=== PATIENT | female | born 1985 | race Caucasian/White ===

== ENCOUNTER 2019-06-28 10:38 | Inpatient (IN) | payer MEDICAID, OTHER ==
[2019-06-28] MEDS ORDERED: BICITRA ORAL LIQD 30ML PO ONE (12:20)
[2019-06-28] MEDS ORDERED: METOCLOPRAMIDE 10 MG/2 ML INJ IV ONE (12:20)
[2019-06-28] MEDS ORDERED: FAMOTIDINE 20 MG/2 ML INJ IV ONE (12:20)
[2019-06-28] MEDS ORDERED: ceFAZolin/Water 2 GM/20 ML 2 GM/20 ML SYRINGE IV NR ×2 (13:00→14:00)
[2019-06-28] MEDS ORDERED: LACTATED RINGERS 1,000 ML IV SCH ×2 (13:00→14:00)
[2019-06-28] MEDS ORDERED: OXYTOCIN 20 UNIT/1000ML DRIP 20 UNITS/1,000 ML BAG IV SCH ×3 (13:00→16:00)
--- NOTE | 2019-06-28 13:56 | History and Physical Report ---
History of Present Illness Date of examination: 06/28/19 Date of admission: 06/28/19 10:38 Chief complaint: Here for 3rd delivery History of present illness: . X2 previous deliveries. LAINA 07/03/2019. Past History Past Medical History: no pertinent history Past Surgical History: section - Obstetrical History Expected Date of Delivery: 07/03/19 Actual Gestation: 39 Week(s) 2 Day(s) : 3 Para: 2 Medications and Allergies Allergies Allergy/AdvReac Type Severity Reaction Status Date / Time No Known Allergies Allergy Unverified 02/18/16 06:22 Home Medications Medication Instructions Recorded Confirmed Last Taken Type Pnv Cmb#21/Iron/Folic Acid 1 tab PO QDAY 02/18/16 02/19/16 02/18/16 History Ferrous Sulfate [Feosol 325 MG tab] 325 mg PO BID #30 tablet 02/20/16 Unknown Rx Ibuprofen [Motrin 800 MG tab] 800 mg PO Q8HR PRN #30 tablet 02/20/16 Unknown Rx oxyCODONE /ACETAMINOPHEN [Percocet 1 tab PO Q6HR PRN #30 tablet 02/20/16 Unknown Rx 5/325] Active Meds: Active Medications Oxytocin/Sodium Chloride (Pitocin/Ns 20 Unit/1000ml Drip) 20 units in 1,000 mls @ 0 mls/hr IV TITR DELIA Lactated Ringer's (Lactated Ringers) 1,000 mls @ 2,250 mls/hr IV PREOP DELIA Stop: 06/29/19 13:27 Cefazolin Sodium (Ancef/Sterile Water 2 Gm/20 Ml) 2 gm in 20 mls @ 80 mls/hr IV PREOP NR Stop: 06/28/19 23:59 Review of Systems All systems: negative - Vital Signs Vital signs: Vital Signs Pulse BP 85 110/58 06/28/19 11:54 06/28/19 11:54 Temp Pulse Resp BP Pulse Ox 85 110/58 06/28/19 11:54 06/28/19 11:54 - Physical Exam Lungs: Positive: Normal air movement Abdomen: Positive: soft, distention. Negative: tenderness - Obstetrical FHR: auscultation normal Uterine Contraction Monitor Mode: Palpation Results All other labs normal. Assessment and Plan - Patient Problems (1) with 39 completed weeks gestation Current Visit: Yes Status: Acute (2) Previous delivery affecting , antepartum Current Visit: Yes Status: Acute Plan to address problem: Patient was counseled re choices for delivery. She chose an elective repeat after hearing all the risks of this procedure and after all her questions were answered. She gave her consent.
[2019-06-28] MEDS ORDERED: FAMOTIDINE 20 MG/2 ML INJ IV SCH (13:57)
[2019-06-28] MEDS ORDERED: METOCLOPRAMIDE 10 MG/2 ML INJ IV SCH (13:57)
--- NOTE | 2019-06-28 13:59 | Anesthesia Day of Surgery ---
Anesthesia Day of Surgery - Day of Surgery Patient Examined: Yes Patient H&P Reviewed: Yes Patient is NPO: Yes
--- NOTE | 2019-06-28 13:59 | Anesthesia Consultation ---
Anesthesia Consult and Med Hx Date of service: 06/28/19 - Airway Anesthetic Teeth Evaluation: Good ROM Head & Neck: Adequate Mental/Hyoid Distance: Adequate Mallampati Class: Class II Intubation Access Assessment: Probably Good - Pulmonary Exam CTA: Yes - Cardiac Exam Cardiac Exam: RRR - Pre-Operative Health Status ASA Pre-Surgery Classification: ASA2 Proposed Anesthetic Plan: Spinal - Pulmonary Hx Asthma: Yes COPD: No Hx Pneumonia: No - Cardiovascular System Hx Hypertension: No - Central Nervous System Hx Seizures: No Hx Psychiatric Problems: No - Endocrine Hx Renal Disease: No Hx End Stage Renal Disease: No Hx Hypothyroidism: No Hx Hyperthyroidism: No - Hematic Hx Anemia: No Hx Sickle Cell Disease: No - Other Systems Hx Alcohol Use: No
[2019-06-28 14:34] LABS: Basophils % (Auto) 0.5 % (0.0-1.8); Eosinophils % (Auto) 0.3 % (0.0-4.3); Hematocrit 40.1 % (30.3-42.9); Hemoglobin 13.5 gm/dl (10.1-14.3); Lymphocytes # (Auto) 1.2 K/mm3 (1.2-5.4); Lymphocytes % (Auto) 22.6 % (13.4-35.0); Mean Corpuscular HGB Conc 34 % (30-34); Mean Corpuscular Volume 93 fl (79-97); Monocytes # (Auto) 0.4 K/mm3 (0.0-0.8); Monocytes % (Auto) 7.5 % (0.0-7.3); Red Blood Count 4.33 M/mm3 (3.65-5.03); Red Cell Distribution Width 13.9 % (13.2-15.2)
[2019-06-28 14:42] LABS: Platelet Count 111 K/mm3 (140-440)
[2019-06-28] MEDS ORDERED: BICITRA ORAL LIQD 30ML PO SCH (15:00)
[2019-06-28] MEDS ORDERED: SODIUM CHLORIDE 0.9% IRR 1,500 ML BOTTLE IR ONE (15:00)
[2019-06-28] MEDS ORDERED: WATER FOR IRRIG STERILE 1,500 ML BOTTLE IR ONE (15:00)
[2019-06-28] MEDS ORDERED: KETOROLAC 30 MG/1 ML INJ ONE (15:14)
[2019-06-28] MEDS ORDERED: OXYTOCIN 10 UNIT/1 ML INJ ONE (15:14)
[2019-06-28] MEDS ORDERED: ONDANSETRON 4 MG/2 ML INJ IV PRN (15:58)
[2019-06-28] MEDS ORDERED: MORPHINE 4 MG/1 ML INJ IV PRN (15:58)
[2019-06-28] MEDS ORDERED: LANOLIN/ZINC/DIMETHICONE (LANSINOH) 7 GM TP PRN (15:58)
[2019-06-28] MEDS ORDERED: NALOXONE 0.4 MG/1 ML INJ IV PRN (15:58)
[2019-06-28] MEDS ORDERED: ACETAMINOPHEN 325 MG TAB PO PRN (15:58)
[2019-06-28] MEDS ORDERED: KETOROLAC 30 MG/1 ML INJ IV PRN (15:58)
[2019-06-28] MEDS ORDERED: WITCH HAZEL/ GLYCERIN PAD TP PRN (15:58)
[2019-06-28] MEDS ORDERED: IBUPROFEN 800 MG TAB PO PRN (15:58)
--- NOTE | 2019-06-28 16:07 | Operative Report ---
Operative Report Operative Report: Date of surgery: 06/28/2019 Preoperative diagnoses: Term , 2 previous sections, probable peritoneal adhesions Postoperative diagnoses: The same. Peritoneal adhesions were present Operation: Lower segment transverse delivery, lysis of adhesions Surgeon:Michael Cha MD Reservations Sales Supervisor: JEFRY Lynn Anesthesia: Spinal block Estimated blood loss: 400 mL Complications: None Findings: There was a live baby girl in cephalic presentation weighing 3585 g with Apgars 8/9. Both ovaries and fallopian tubes were grossly normal. The uterus was grossly normal. There was a narrow band of adhesions involving the inferior edge of the greater omentum and the anterior pareites in the midline and inferior to the navel. The pelvis was otherwise clean. Procedure in detail: The patient was taken to the operating room and given a spinal block. Patient was placed in the straight supine position and a Thomas catheter was inserted. The patient was prepped in the abdomen. The drapes were placed. A timeout was done. With the go ahead from the senior vice president and chief information officer, a Pfannenstiel incision was made. This incision was carried across the subcutaneous layer to the fascia which was also divided transversely. The recti abdominis muscle flaps were stripped from the fascia using a combination of blunt and sharp dissections. The muscles were in the midline to gain access to the anterior parietal peritoneum which was divided after excluding any underlying viscera. The access to the peritoneal cavity was then widened by manual stretching. The bladder blade was applied. The utero vesicle peritoneal flap was divided transversely allowing the bladder to be displaced caudally. The uterine incision was placed in the lower segment transversely. The uterine incision was carried to the decidual layer. The uterine incision was extended on both sides using the bandage scissors. The amniotic sac was ruptured with clear fluid. The head was lifted out of the false maternal pelvis and delivered through the incision using fundal pressure. The airways were bulb suctioned beginning with the mouth. Continuing fundal pressure combined with traction on the mandibular processes of the jaw delivered the rest of the baby. The umbilical cord was double clamped and divided. The baby was carefully transferred to the pediatric team. The placenta was manually removed from the uterine cavity. The uterine cavity was explored and was empty of any placental remnants. The uterine incision was repaired in 2 layers with #1 Vicryl. The surgical line on the uterus was hemostatic. The omental adhesion described above was double clamped close to the edge of the rectus abdominis layer on the left side, divided, and the 2 stumps were tied off with 2-0 Vicryl. Hemostasis was great. Blood and clots were cleared from the peritoneal cavity. The anterior parietal peritoneum was repaired with #1 Vicryl. The fascia was repaired with #1 Vicryl. The subcutaneous layer was made hemostatic using the Bovie before the skin was closed subcuticularly with 4-0 Vicryl. There were no complications. The estimated blood loss was 400 mL. All sponges and instrument counts were correct. Patient was safely transferred to the recovery room.
--- NOTE | 2019-06-28 16:11 | Post Anesthesia Evaluation ---
- Post Anesthesia Evaluation Patient Participated: Yes Airway Patent: Yes Stable Respiratory Function: Yes Nausea/Vomiting: No Temp > 96.8F: Yes Pain Manageable: Yes Adequeate Hydration: Yes Anesthesia Complications: No Block Receding Appropriately: Yes
[2019-06-28] MEDS ORDERED: NalbUPHINE 10 MG/1 ML INJ IV PRN (16:12)
[2019-06-28] MEDS: ceFAZolin/NS 1 GM/50 ML 1 GM/50 ML BAG IV SCH (21:38)
[2019-06-28] MEDS: D5W/LACTATED RINGERS 1,000 ML IV SCH ×2 (21:59→22:02)
[2019-06-29] MEDS: KETOROLAC 30 MG/1 ML INJ IV SCH ×5 (00:52→17:54)
[2019-06-29] MEDS: ACETAMINOPHEN 500 MG TAB PO SCH ×3 (00:53→18:39)
[2019-06-29 04:14] LABS: Hematocrit 34.1 % (30.3-42.9); Hemoglobin 11.7 gm/dl (10.1-14.3)
[2019-06-29] MEDS: ceFAZolin/NS 1 GM/50 ML 1 GM/50 ML BAG IV SCH (05:24)
[2019-06-29] MEDS: PRENATAL VIT27-FE FUMARATE-FOLIC ACID VIT TAB PO SCH (09:49)
[2019-06-29] MEDS: FERROUS SULFATE 325 MG TAB PO SCH (09:49)
--- NOTE | 2019-06-29 09:54 | Progress Note ---
Assessment and Plan - Patient Problems (1) Status post repeat low transverse section Current Visit: No Status: Acute Plan to address problem: Continue routine PP orders Keep dressing dry and intact, remove on PPD 2 Anticipate d/c home in 48 hrs Subjective - Subjective Date of service: 06/29/19 Principal diagnosis: Repeat C/S; POD#1 Interval history: See admission H & P; OB operative note and PP progress notes Patient reports: appetite normal, voiding normally, pain well controlled (with medications), ambulating normally, no flatus, no bowel movement : doing well, bottle feeding (and ) Objective - Vital Signs Latest vital signs: Vital Signs Temp Pulse Resp BP BP Pulse Ox 06/29/19 05:05 98.5 F 61 20 121/51 94 06/28/19 23:55 98.2 F 63 20 120/56 97 06/28/19 22:20 98.6 F 79 18 118/70 99 06/28/19 21:05 97.6 F 64 20 130/66 97 06/28/19 17:30 97.9 F 53 L 20 109/57 06/28/19 17:12 98 F 56 L 14 108/38 98 06/28/19 17:00 55 L 14 113/43 98 06/28/19 16:50 65 14 96/46 96 06/28/19 16:35 65 12 92/50 96 06/28/19 16:20 61 12 90/45 96 06/28/19 16:15 63 12 86/35 96 06/28/19 16:09 97.6 F 71 12 87/44 96 06/28/19 13:23 98.4 F 85 15 110/58 06/28/19 11:54 85 110/58 Intake and Output 06/28/19 06/29/19 06/29/19 23:59 07:59 15:59 Intake Total 476.25 120 Output Total 650 400 Balance -173.75 -280 Intake: IV 356.25 ANCEF/NS 1 GM/50 ML 1 gm 50 In 50 ml @ 100 mls/hr IV Q8H DELIA Rx#:[id number] D5lr 1,000 ml @ 125 mls/ 6.25 hr IV DIRECT DELIA Rx#: [id number] Oral 120 120 Output: Urine 650 400 Indwelling Catheter 600 Void 400 Other: Total, Intake Amount 120 120 Total, Output Amount 600 400 # Voids Void 1 Estimated Blood Loss 400 - Exam Breasts: Present: normal Cardiovascular: Present: Regular rate Lungs: Present: Normal air movement Abdomen: Present: tenderness Uterus: Present: firm, fundal height at umbilicus Extremities: Present: normal Deep Tendon Reflex Grade: Normal +2 Incision: Present: dry, intact, dressed - Labs Labs: Abnormal lab results 06/28/19 Range/Units 14:00 Plt Count 111 L (140-440) K/mm3 Branch % (Auto) 7.5 H (0.0-7.3) %
[2019-06-29] MEDS: HYDROcodone/ACETAMINOPHEN 5-325 MG TAB PO PRN ×2 (09:56→21:51)
[2019-06-30] MEDS: ACETAMINOPHEN 500 MG TAB PO SCH ×2 (00:36→07:01)
[2019-06-30] MEDS: KETOROLAC 30 MG/1 ML INJ IV SCH ×2 (00:38→07:00)
[2019-06-30 08:30] VITALS: BP 111/53
--- NOTE | 2019-06-30 12:35 | Progress Note ---
Assessment and Plan A: POD #2 Stable P: Follow Routine orders D/C home today per patient request RTO in One Week Subjective - Subjective Date of service: 06/30/19 Principal diagnosis: Repeat C/S; POD#1 Patient reports: appetite normal, voiding normally, pain well controlled, flatus, bowel movement, ambulating normally [place]: doing well Objective - Vital Signs Latest vital signs: Vital Signs Temp Pulse Resp BP BP Pulse Ox 06/30/19 07:26 98.0 F 76 18 111/53 06/30/19 00:35 97.7 F 72 18 111/73 98 06/29/19 16:14 98.8 F 69 18 123/67 93 Intake and Output 06/29/19 06/30/19 06/30/19 22:59 06:59 14:59 Intake Total 120 240 480 Balance 120 240 480 Intake: Oral 120 240 480 Other: Total, Intake Amount 120 120 480 # Voids Void 1 1 - Exam Breasts: Present: normal Cardiovascular: Present: Regular rate Lungs: Present: Clear to auscultation, Normal air movement Abdomen: Present: normal appearance, soft, normal bowel sounds Uterus: Present: normal, firm, fundal height at umbilicus Extremities: Present: normal Incision: Present: normal, dry, intact
--- NOTE | 2019-06-30 12:36 | Discharge Summary ---
Providers - Providers Date of Admission: 06/28/19 10:38 Date of discharge: 06/30/19 Attending physician: ELZBIETA WATERMAN MD Primary care physician: ELZBIETA WATERMAN MD Hospitalization Reason for admission: section Delivery: Procedure: repeat low transverse Episiotomy: none Laceration: none Incision: normal, dry, intact complications: none Discharge diagnosis: IUP at term delivered [place] baby: female Condition at discharge: Good Disposition: DC-01 TO HOME OR SELFCARE Plan - Provider Discharge Summary Activity: routine, no sex for 6 weeks, no heavy lifting 4 weeks, no strenuous exercise Diet: routine Instructions: routine Additional instructions: [] Smoking cessation referral if applicable(refer to patient education folder for contact #) [] Refer to [facility] Booklet Call your doctor immediately for: * Fever > 100.5 * Heavy vaginal bleeding ( >1 pad per hour) * Severe persistent headache * Shortness of breath * Reddened, hot, painful area to leg or breast * Drainage or odor from incision. * Keep incision clean and dry at all times and follow doctor's instructions regarding bathing/showering - Follow up plan Follow up: ELZBIETA WATERMAN MD [Primary Care Provider] - 7 Days
[2019-06-30] MEDS: HYDROcodone/ACETAMINOPHEN 5-325 MG TAB PO PRN (14:50)
[2019-06-30] MEDS: FERROUS SULFATE 325 MG TAB PO SCH (14:50)
[2019-06-30] MEDS: PRENATAL VIT27-FE FUMARATE-FOLIC ACID VIT TAB PO SCH (14:50)
== END 2019-06-30 17:00 | disposition home or self-care (01) | DRG 788 ==
LOC: APU 10:38 → OB 17:27
PROVIDERS: ADMIT Obstetrics & Gynecology; ATTEND Obstetrics & Gynecology
PROC: 10D00Z1 Extraction of Products of Conception, Low, Open Approach (ICD-10-PCS; principal; 2019-06-28)
DX: O34.211 Maternal care for low transverse scar from previous cesarean delivery (principal); O99.52 Diseases of the respiratory system complicating childbirth; J45.909 Unspecified asthma, uncomplicated; Z3A.39 39 weeks gestation of pregnancy; Z37.0 Single live birth
CPT/HCPCS: 36415; 85014; 85018; 85025; 86592; 86850; 86900; 86901; G0378; J0690; J1885; J2270; J2590; J2765; J7120; J7121

== ENCOUNTER 2019-07-29 17:24 | Inpatient (IN) | payer MEDICAID, OTHER ==
--- NOTE | 2019-07-29 17:46 | Emergency Department Report ---
Blank Doc - Documentation Documentation: 34-year-old female that presents with abdominal pain and n/v. This initial assessment/diagnostic orders/clinical plan/treatment(s) is/are subject to change based on patient's health status, clinical progression and re- assessment by fellow clinical providers in the ED. Further treatment and workup at subsequent clinical providers discretion. Patient/guardians urged not to elope from the ED as their condition may be serious if not clinically assessed and managed. Initial orders include: 1- Patient sent to [facility] for further evaluation and treatment 2- labs 3- UA
[2019-07-29 18:38] LABS: Alanine Aminotransferase 29 units/L (7-56); BUN/Creatinine Ratio 20; Basophils % (Auto) 0.4 % (0.0-1.8); Blood Urea Nitrogen 12 mg/dL (7-17); Eosinophils # (Auto) 0.3 K/mm3 (0.0-0.4); Eosinophils % (Auto) 4.6 % (0.0-4.3); Hemoglobin 12.8 gm/dl (10.1-14.3); Hemolysis Index 12; Lymphocytes # (Auto) 0.9 K/mm3 (1.2-5.4); Lymphocytes % (Auto) 12.5 % (13.4-35.0); Mean Corpuscular HGB Conc 34 % (30-34); Mean Corpuscular Volume 92 fl (79-97); Monocytes # (Auto) 0.6 K/mm3 (0.0-0.8); Monocytes % (Auto) 7.8 % (0.0-7.3); Platelet Count 236 K/mm3 (140-440); Red Blood Count 4.12 M/mm3 (3.65-5.03)
[2019-07-29] MEDS ORDERED: ONDANSETRON 4 MG/2 ML INJ ONE (19:28)
[2019-07-29 19:29] LABS: Bilirubin,Urine NEG (Negative); Blood,Urine NEG (Negative); Color,Urine Yellow (Yellow); Mucus,Urine FEW /HPF; Protein,Urine <15 mg/dL mg/dL (Negative)
[2019-07-29] MEDS ORDERED: MORPHINE 4 MG/1 ML INJ ONE (19:29)
[2019-07-29] MEDS ORDERED: SODIUM CHLORIDE 0.9% 1000 ML 1,000 ML ONE (19:29)
[2019-07-29] MEDS ORDERED: ONDANSETRON 4 MG/2 ML INJ IV ONE (19:30)
[2019-07-29] MEDS ORDERED: MORPHINE 4 MG/1 ML INJ IV ONE (19:30)
[2019-07-29] MEDS ORDERED: SODIUM CHLORIDE 0.9% 1000 ML 1,000 ML IV ONE (19:30)
[2019-07-29] MEDS ORDERED: cefTRIAXone/NS 1 GM/50 ML 1 GM/50 ML BAG IV ONE (19:49)
--- NOTE | 2019-07-29 21:20 | Cat Scan Report ---
CT ABDOMEN AND PELVIS WITH CONTRAST INDICATION / CLINICAL INFORMATION: right flank, RUQ pain. TECHNIQUE: Axial CT images were obtained through the abdomen and pelvis after 80 mL Omnipaque [address] scans at this location are performed using CT dose reduction for ALARA by means of automated e xposure control. COMPARISON: None available. FINDINGS: LOWER CHEST: Small calcified granuloma in the lingula. LIVER: No significant abnormality. BILIARY SYSTEM: There are multiple gallstones. The gallbladder is round and distended with diffuse ga llbladder wall thickening and pericholecystic inflammatory change. PANCREAS: No significant abnormality. SPLEEN: No significant abnormality. ADRENALS: No significant abnormality. KIDNEYS and URETERS: No significant abnormality. STOMACH / BOWEL: No significant abnormality. PERITONEUM: Trace pelvic free fluid. No free air. No fluid collection. LYMPH NODES: No significant adenopathy. VASCULAR STRUCTURES: No significant abnormality. URINARY BLADDER: No significant abnormality. REPRODUCTIVE ORGANS: The uterus appears mildly enlarged, extending to the level of the umbilicus, but otherwise unremarkable in appearance. Transverse scar across the lower anterior abdominal wall relat ed to prior . ADDITIONAL FINDINGS: None. SKELETAL SYSTEM: No significant abnormality. IMPRESSION: 1. Cholelithiasis with associated gallbladder wall thickening and pericholecystic inflammatory change compatible with acute cholecystitis. Signer Name: Cha Gaitan MD Signed: 07/29/2019 9:16 PM Workstation Name: [id number]
[2019-07-29] MEDS ORDERED: PIPERACIL/TAZOBACTA 4.5/NS 100 4.5 GM/100 ML VIAL IV ONE ×2 (21:28→22:57)
[2019-07-29] MEDS ORDERED: HYDROmorphone 1 MG/1 ML INJ IV ONE (21:37)
[2019-07-29] MEDS ORDERED: HYDROmorphone 1 MG/1 ML INJ ONE (21:40)
--- NOTE | 2019-07-29 21:41 | Emergency Department Report ---
ED Abdominal Pain HPI - General Chief Complaint: Abdominal Pain Stated Complaint: RT SIDE BACK/STOMACH PAIN Time Seen by Provider: 07/29/19 17:45 Source: patient, family ( for telugu interpretation) Mode of arrival: Ambulatory Limitations: Language Barrier - History of Present Illness Initial Comments: Patient is a 34-year-old female presents emergency room with complaints of right upper quadrant pain that radiates to her right upper back that began yesterday. She has associated nausea and vomiting and urinary frequency. She denies any diarrhea, fever, any other symptoms. She states that she is and had a a month ago at [facility] but does not know which doctor. She denies any past medical history or allergies medications. She states her last menstrual cycle was 07/26/19. Severity scale (0 -10): 6 - Related Data Home Medications Medication Instructions Recorded Confirmed Last Taken No Known Home Medications [No 07/30/19 07/30/19 Unknown Reported Home Medications] Allergies Allergy/AdvReac Type Severity Reaction Status Date / Time No Known Allergies Allergy Unverified 02/18/16 06:22 ED Review of Systems ROS: Stated complaint: RT SIDE BACK/STOMACH PAIN Other details as noted in HPI Comment: All other systems reviewed and negative ED Past Medical Hx - Past Medical History Hx Hypertension: No Hx Congestive Heart Failure: No Hx Diabetes: No Hx Deep Vein Thrombosis: No Hx Renal Disease: No Hx Sickle Cell Disease: No Hx Seizures: No Hx Asthma: Yes Hx COPD: No Hx HIV: No - Social History Smoking Status: Never Smoker Substance Use Type: None - Medications Home Medications: Home Medications Medication Instructions Recorded Confirmed Last Taken Type No Known Home Medications [No 07/30/19 07/30/19 Unknown History Reported Home Medications] ED Physical Exam - General Limitations: No Limitations General appearance: alert, in no apparent distress - Head Head exam: Present: atraumatic, normocephalic - Eye Eye exam: Present: normal appearance - ENT ENT exam: Present: mucous membranes moist - Respiratory Respiratory exam: Present: normal lung sounds bilaterally. Absent: respiratory distress, wheezes, rales, rhonchi, stridor, chest wall tenderness, accessory muscle use, decreased breath sounds, prolonged expiratory - Cardiovascular Cardiovascular Exam: Present: regular rate, normal rhythm, normal heart sounds. Absent: systolic murmur, diastolic murmur, rubs, gallop - GI/Abdominal GI/Abdominal exam: Present: soft, tenderness (RUQ), normal bowel sounds, other ( incision is clean, dry, intact without signs of infection). Absent: distended, guarding, rebound, rigid - Neurological Exam Neurological exam: Present: alert, oriented X3 - Psychiatric Psychiatric exam: Present: normal affect, normal mood - Skin Skin exam: Present: warm, dry, intact ED Course Vital Signs 07/29/19 07/29/19 17:36 22:47 Temperature 98.3 F Pulse Rate 89 65 Respiratory 16 17 Rate Blood Pressure 120/46 Blood Pressure 129/61 [Left] O2 Sat by Pulse 98 97 Oximetry - Consultations Consultation #1: 07/29/19 21:[address] Jimenez, general surgery who recommended admission to hospitalist, keep patient NPO, IV fluids, IV Zosyn, right upper quadrant u ltrasound, will evaluate patient in the morning. Consultation #2: 07/29/19 21:[address] Quijano, hospitalist regarding pt, will accept and resume care of patient, will admit to the hospital ED Medical Decision Making - Lab Data Result diagrams: 07/29/19 18:00 07/29/19 18:00 Lab Results 07/29/19 07/29/19 07/29/19 Range/Units 18:00 18:00 18:00 WBC 7.1 (4.5-11.0) K/mm3 RBC 4.12 (3.65-5.03) M/mm3 Hgb 12.8 (10.1-14.3) gm/dl Hct 38.0 (30.3-42.9) % MCV 92 (79-97) fl MCH 31 (28-32) pg MCHC 34 (30-34) % RDW 13.0 L (13.2-15.2) % Plt Count 236 (140-440) K/mm3 Lymph % (Auto) 12.5 L (13.4-35.0) % Brooke % (Auto) 7.8 H (0.0-7.3) % Eos % (Auto) 4.6 H (0.0-4.3) % Baso % (Auto) 0.4 (0.0-1.8) % Lymph # 0.9 L (1.2-5.4) K/mm3 Brooke # 0.6 (0.0-0.8) K/mm3 Eos # 0.3 (0.0-0.4) K/mm3 Baso # 0.0 (0.0-0.1) K/mm3 Seg Neutrophils % 74.7 H (40.0-70.0) % Seg Neutrophils # 5.3 (1.8-7.7) K/mm3 Sodium 139 (137-145) mmol/L Potassium 3.9 (3.6-5.0) mmol/L Chloride 102.0 (98-107) mmol/L Carbon Dioxide 21 L (22-30) mmol/L Anion Gap 20 mmol/L BUN 12 (7-17) mg/dL Creatinine 0.6 L (0.7-1.2) mg/dL Estimated GFR > 60 ml/min BUN/Creatinine Ratio 20 % Glucose 118 H (65-100) mg/dL Calcium 9.0 (8.4-10.2) mg/dL Total Bilirubin 0.60 (0.1-1.2) mg/dL AST 24 (5-40) units/L ALT 29 (7-56) units/L Alkaline Phosphatase 172 H (35-129) units/L Total Protein 7.5 (6.3-8.2) g/dL Albumin 4.0 (3.9-5) g/dL Albumin/Globulin Ratio 1.1 % Lipase 27 (13-60) units/L HCG, Qual (Negative) Urine Color (Yellow) Urine Turbidity (Clear) Urine pH (5.0-7.0) Ur Specific [place] (1.003-1.030) Urine Protein (Negative) mg/dL Urine Glucose (UA) (Negative) mg/dL Urine Ketones (Negative) mg/dL Urine Blood (Negative) Urine Nitrite (Negative) Urine Bilirubin (Negative) Urine Urobilinogen (<2.0) mg/dL Ur Leukocyte Esterase (Negative) Urine WBC (Auto) (0.0-6.0) /HPF Urine RBC (Auto) (0.0-6.0) /HPF U Epithel Cells (Auto) (0-13.0) /HPF Urine Mucus /HPF 07/29/19 07/29/19 Range/Units 18:00 19:01 WBC (4.5-11.0) K/mm3 RBC (3.65-5.03) M/mm3 Hgb (10.1-14.3) gm/dl Hct (30.3-42.9) % MCV (79-97) fl MCH (28-32) pg MCHC (30-34) % RDW (13.2-15.2) % Plt Count (140-440) K/mm3 Lymph % (Auto) (13.4-35.0) % Brooke % (Auto) (0.0-7.3) % Eos % (Auto) (0.0-4.3) % Baso % (Auto) (0.0-1.8) % Lymph # (1.2-5.4) K/mm3 Brooke # (0.0-0.8) K/mm3 Eos # (0.0-0.4) K/mm3 Baso # (0.0-0.1) K/mm3 Seg Neutrophils % (40.0-70.0) % Seg Neutrophils # (1.8-7.7) K/mm3 Sodium (137-145) mmol/L Potassium (3.6-5.0) mmol/L Chloride (98-107) mmol/L Carbon Dioxide (22-30) mmol/L Anion Gap mmol/L BUN (7-17) mg/dL Creatinine (0.7-1.2) mg/dL Estimated GFR ml/min BUN/Creatinine Ratio % Glucose (65-100) mg/dL Calcium (8.4-10.2) mg/dL Total Bilirubin (0.1-1.2) mg/dL AST (5-40) units/L ALT (7-56) units/L Alkaline Phosphatase (35-129) units/L Total Protein (6.3-8.2) g/dL Albumin (3.9-5) g/dL Albumin/Globulin Ratio % Lipase (13-60) units/L HCG, Qual Negative (Negative) Urine Color Yellow (Yellow) Urine Turbidity Clear (Clear) Urine pH 7.0 (5.0-7.0) Ur Specific [place] 1.023 (1.003-1.030) Urine Protein <15 mg/dl (Negative) mg/dL Urine Glucose (UA) Neg (Negative) mg/dL Urine Ketones Neg (Negative) mg/dL Urine Blood Neg (Negative) Urine Nitrite Neg (Negative) Urine Bilirubin Neg (Negative) Urine Urobilinogen 4.0 (<2.0) mg/dL Ur Leukocyte Esterase Mod (Negative) Urine WBC (Auto) 14.0 H (0.0-6.0) /HPF Urine RBC (Auto) 2.0 (0.0-6.0) /HPF U Epithel Cells (Auto) < 1.0 (0-13.0) /HPF Urine Mucus Few /HPF - Radiology Data Radiology results: report reviewed CT ABDOMEN AND PELVIS WITH CONTRAST INDICATION / CLINICAL INFORMATION: right flank, RUQ pain. TECHNIQUE: Axial CT images were obtained through the abdomen and pelvis after 80 mL Omnipaque [address] scans at this location are performed using CT dose reduction for ALARA by means of automated exposure control. COMPARISON: None available. FINDINGS: LOWER CHEST: Small calcified granuloma in the lingula. LIVER: No significant abnormality. BILIARY SYSTEM: There are multiple gallstones. The gallbladder is round and distended with diffuse gallbladder wall thickening and pericholecystic inflammatory change. PANCREAS: No significant abnormality. SPLEEN: No significant abnormality. ADRENALS: No significant abnormality. KIDNEYS and URETERS: No significant abnormality. STOMACH / BOWEL: No significant abnormality. PERITONEUM: Trace pelvic free fluid. No free air. No fluid collection. LYMPH NODES: No significant adenopathy. VASCULAR STRUCTURES: No significant abnormality. URINARY BLADDER: No significant abnormality. REPRODUCTIVE ORGANS: The uterus appears mildly enlarged, extending to the level of the umbilicus, but otherwise unremarkable in appearance. Transverse scar across the lower anterior abdominal wall related to prior . ADDITIONAL FINDINGS: None. SKELETAL SYSTEM: No significant abnormality. IMPRESSION: 1. Cholelithiasis with associated gallbladder wall thickening and pericholecystic inflammatory change compatible with acute cholecystitis. Signer Name: Cha Gaitan MD Signed: 07/29/2019 9:16 PM Workstation Name: [id number] Transcribed By: [facility] Dictated By: Cha Gaitan MD Electronically Authenticated By: Cha Gaitan MD Signed Date/Time: 07/29/192115 DD/ 09 TD/TT: LIMITED RUQ ABDOMINAL ULTRASOUND INDICATION / CLINICAL INFORMATION: cholecystitis on CT. COMPARISON: CT abdomen pelvis same day FINDINGS: PANCREAS: Visualized portions show no significant abnormality. ABDOMINAL AORTA: No significant abnormality. IVC: No significant abnormality.. LIVER: No significant abnormality. Normal hepatopedal blood flow in the main portal vein. GALLBLADDER: Cholelithiasis. The gallbladder is round and distended with circumferential gallbladder wall thickening measuring up to 10 mm in thickness. BILE DUCTS: No significant abnormality. Common bile duct measures 5 mm. RIGHT KIDNEY: No significant abnormality visualized. FREE FLUID: None. ADDITIONAL FINDINGS: None. IMPRESSION: 1. Cholelithiasis with gallbladder wall thickening worrisome for acute cholecystitis. Signer Name: Cha Gaitan MD Signed: 07/29/2019 10:44 PM Workstation Name: [id number] Transcribed By: [facility] Dictated By: Cha Gaitan MD Electronically Authenticated By: Cha Gaitan MD Signed Date/Time: 07/29/192243 DD/ 40 TD/TT: - Medical Decision Making Patient is a 34-year-old female presents emergency room with complaints of right upper quadrant pain that radiates to her right upper back that began yesterday. She has associated nausea and vomiting and urinary frequency. She denies any diarrhea, fever, any other symptoms. She states that she is and had a a month ago at [facility] but does not know which doctor. She denies any past medical history or allergies medications. She states her last menstrual cycle was 07/26/19. vitals are normal. labs are stable. UA shows evidence of UTI, pt given 1g of ceftriaxone. CT abd pelvis: 1. Cholelithiasis with associated gallbladder wall thickening and pericholecystic inflammatory change compatible with acute cholecystitis. Spoke with Dr. Jimenez, general surgery who recommended admission to hospitalist, keep patient NPO, IV fluids, IV Zosyn, right upper quadrant ultrasound, will evaluate patient in the morning. spoke with Dr. Quijano, hospitalist regarding pt, will accept and resume care of patient, will admit to the hospital. pt admitted to the hospital - Differential Diagnosis cholecystitis, colitis, appendicitis, UTI, pyelonephritis, nephrolithiasis Critical care attestation.: If time is entered above; I have spent that time in minutes in the direct care of this critically ill patient, excluding procedure time. ED Disposition Clinical Impression: RUQ pain, Acute cholecystitis UTI (urinary tract infection) Qualifiers: Urinary tract infection type: acute cystitis Hematuria presence: without hematuria Qualified Code(s): N30.00 - Acute cystitis without hematuria Disposition: OP ADMIT IP TO THIS HOSP Is pt being admited?: Yes Does the pt Need Aspirin: No Condition: Fair
--- NOTE | 2019-07-29 22:12 | History and Physical Report ---
History of Present Illness History of present illness: 34-year-old With no medical problem causing emergency room with complaints of abdominal pain. Patient stated that she started area right upper quadrant pain one week ago however her symptoms subsided, yesterday the pain returned which she described as a pressure-like sensation, constant, intensity 6/10, radiating to the back, better with pain medication given in the emergency room and as sociated with nausea vomiting. Also complaining of dysuria . Patient is being admitted for acute cholecystitis Review of systems Constitutional: no weight loss, chills, fever Ears, eyes, nose, mouth and throat: no nasal congestion, no nasal discharge, no sinus pressure, no vision change, no red eye. Neck: No neck pain or rigidity. Cardiovascular: no chest pain, palpitations Respiratory: no cough, shortness of breath Gastrointestinal: no hematochezia Genitourinary : no frequency , no hematuria Musculoskeletal: no joint swelling or muscle ache Integumentary: no rash, no pruritis Neurological:no parathesias numbness, focal weakness Endocrine: no cold or heat intolerance, no polyuria or polydipsia Hematologic/Lymphatic: no easy bruising, no easy bleeding, no gland swelling Allergic/Immunologic: no urticaria, no angioedema. PAST MEDICAL HISTORY: None PAST SURGICAL HISTORY: SOCIAL HISTORY: no alcohol, drugs or tobacco FAMILY HISTORY: Hypertension Medications and Allergies Allergies Allergy/AdvReac Type Severity Reaction Status Date / Time No Known Allergies Allergy Unverified 02/18/16 06:22 Exam - Physical Exam Narrative exam: Gen. appearance: Patient lying in bed, no apparent distress HEENT: Normocephalic, atraumatic, pupils equally round and reactive to light, extraocular movement intact, and no sclericterus,. No JVD or thyromegaly or nodule,neck supple, no carotid bruit ,mucous membranes moist, no exudate or erythema Heart: S1, S2, regular rate and rhythm Lungs: Clear bilaterally, breathing comfortable Abdomen: Positive bowel sounds, tender in the right upper quadrant, no rebound or guarding, nondistended, no organomegaly Extremity:no edema cyanosis, clubbing Skin: no rash, dry, warm Neuro: Oriented 3, cranial nerves II-12 intact, speech is fluent, motor and sensory intact - Constitutional Vitals: Temp Pulse Resp BP Pulse Ox 98.3 F 89 16 120/46 98 07/29/19 17:36 07/29/19 17:36 07/29/19 17:36 07/29/19 17:36 07/29/19 17:36 Results - Labs CBC & Chem 7: 07/29/19 18:00 07/29/19 18:00 Labs: Abnormal lab results 07/29/19 07/29/19 07/29/19 Range/Units 18:00 18:00 19:01 RDW 13.0 L (13.2-15.2) % Lymph % (Auto) 12.5 L (13.4-35.0) % Sunflower % (Auto) 7.8 H (0.0-7.3) % Eos % (Auto) 4.6 H (0.0-4.3) % Lymph # 0.9 L (1.2-5.4) K/mm3 Seg Neutrophils % 74.7 H (40.0-70.0) % Carbon Dioxide 21 L (22-30) mmol/L Creatinine 0.6 L (0.7-1.2) mg/dL Glucose 118 H (65-100) mg/dL Alkaline Phosphatase 172 H (35-129) units/L Urine WBC (Auto) 14.0 H (0.0-6.0) /HPF - Imaging and Cardiology CT scan - abdomen: report reviewed CT scan - pelvis: report reviewed US - abdomen: report reviewed Assessment and Plan Assessment Acute cholecystitis Urinary tract infection Placed on bowel rest, IV fluids, IV morphine, surgery was consulted to see the patient Start IV Rocephin, follow cultures , DVT prophylaxis
--- NOTE | 2019-07-29 22:48 | Ultrasound Report ---
LIMITED RUQ ABDOMINAL ULTRASOUND INDICATION / CLINICAL INFORMATION: cholecystitis on CT. COMPARISON: CT abdomen pelvis same day FINDINGS: PANCREAS: Visualized portions show no significant abnormality. ABDOMINAL AORTA: No significant abnormality. IVC: No significant abnormality.. LIVER: No significant abnormality. Normal hepatopedal blood flow in the main portal vein. GALLBLADDER: Cholelithiasis. The gallbladder is round and distended with circumferential gallbladder wall thickening measuring up to 10 mm in thickness. BILE DUCTS: No significant abnormality. Common bile duct measures 5 mm. RIGHT KIDNEY: No significant abnormality visualized. FREE FLUID: None. ADDITIONAL FINDINGS: None. IMPRESSION: 1. Cholelithiasis with gallbladder wall thickening worrisome for acute cholecystitis. Signer Name: Cha Gaitan MD Signed: 07/29/2019 10:44 PM Workstation Name: [id number]
[2019-07-29] MEDS ORDERED: ACETAMINOPHEN 325 MG TAB PO PRN (23:35)
[2019-07-30] MEDS: MORPHINE 2 MG/1 ML INJ IV PRN ×4 (00:29→13:08)
[2019-07-30] MEDS: ONDANSETRON 4 MG/2 ML INJ IV PRN ×2 (00:29→10:11)
[2019-07-30] MEDS: SODIUM CHLORIDE 0.9% 1000 ML 1,000 ML IV SCH ×3 (00:34→23:55)
[2019-07-30 08:19] LABS: Hematocrit 37.5 % (30.3-42.9); Hemoglobin 12.9 gm/dl (10.1-14.3); Mean Corpuscular HGB Conc 34 % (30-34); Mean Corpuscular Volume 92 fl (79-97); Platelet Count 237 K/mm3 (140-440); Red Cell Distribution Width 13.3 % (13.2-15.2)
[2019-07-30 08:36] LABS: BUN/Creatinine Ratio 17; Blood Urea Nitrogen 5 mg/dL (7-17); Calcium 9.1 mg/dL (8.4-10.2); Hemolysis Index 7
[2019-07-30] MEDS ORDERED: ENOXAPARIN 30 MG/0.3 ML INJ SUB-Q SCH (10:00)
[2019-07-30] MEDS: ENOXAPARIN 40 MG/0.4 ML INJ SUB-Q SCH (10:11)
[2019-07-30] MEDS: cefTRIAXone/NS 1 GM/50 ML 1 GM/50 ML BAG IV SCH (10:12)
[2019-07-30 10:32] LABS: Total Cells Counted 100
[2019-07-30 10:33] LABS: Band Neutrophils # (Manual) 0.2 K/mm3; Basophils % (Manual) 0 % (0.0-1.8); Eosinophils % (Manual) 0 % (0.0-4.3); Monocytes % (Manual) 0 % (0.0-7.3)
[2019-07-30 10:34] LABS: Platelet Estimate Consistent w Auto; RBC Morphology Normal
--- NOTE | 2019-07-30 14:58 | Consultation ---
History of Present Illness Consult date: 07/30/19 Reason for consult: abdominal pain Chief complaint: abdominal pain - History of present illness History of present illness: 34 yo portuguese speaking female who presented to the hospital with intermittent RU Q pain for the last 1-2 weeks. States the pain is severe. It does not radiate. No exacerbating or alleviating factors. +n/v. No f/c. No c/d Past History Past Medical History: No medical history Past Surgical History: , Other (tubal ligation) Social history: no significant social history Family history: no significant family history Medications and Allergies Allergies Allergy/AdvReac Type Severity Reaction Status Date / Time No Known Allergies Allergy Unverified 02/18/16 06:22 Home Medications Medication Instructions Recorded Confirmed Last Taken Type No Known Home Medications [No 07/30/19 07/30/19 Unknown History Reported Home Medications] Active Meds: Active Medications Acetaminophen (Tylenol) 650 mg PO Q4H PRN PRN Reason: Pain MILD(1-3)/Fever >100.5/MEAD Enoxaparin Sodium (Enoxaparin) 40 mg SUB-Q QDAY@1000 DELIA Last Admin: 07/30/19 10:11 Dose: 40 mg Documented by: Sodium Chloride (Nacl 0.9% 1000 Ml) 1,000 mls @ 100 mls/hr IV DIRECT DELIA Last Admin: 07/30/19 10:11 Dose: 100 mls/hr Documented by: Ceftriaxone Sodium (Rocephin/Ns 1 Gm/50 Ml) 1 gm in 50 mls @ 100 mls/hr IV Q24HR DELIA; Protocol Last Admin: 07/30/19 10:12 Dose: 100 mls/hr Documented by: Morphine Sulfate (Morphine) 2 mg IV Q4H PRN PRN Reason: Pain, Moderate (4-6) Last Admin: 07/30/19 13:08 Dose: 2 mg Documented by: Ondansetron HCl (Zofran) 4 mg IV Q8H PRN PRN Reason: Nausea And Vomiting Last Admin: 07/30/19 10:11 Dose: 4 mg Documented by: Sodium Chloride (Sodium Chloride Flush Syringe 10 Ml) 10 ml IV BID DELIA Last Admin: 07/30/19 10:12 Dose: 10 ml Documented by: Sodium Chloride (Sodium Chloride Flush Syringe 10 Ml) 10 ml IV PRN PRN PRN Reason: LINE FLUSH Review of Systems All systems: negative (10 pt ROS performed and negative except for that listed in HPI) Exam Vital Signs Temp Pulse Resp BP Pulse Ox 98.3 F 89 16 120/46 98 07/29/19 17:36 07/29/19 17:36 07/29/19 17:36 07/29/19 17:36 07/29/19 17:36 Narrative exam: Gen: AAOx3. moderate distress due to pain ENT: NO scleral icterus or conjunctival pallor CV: S1, S2+ resp; even and unlabored Abd: soft, NT, +RUQ TTP. +guarding Ext: no c/c/e Results - Labs 07/30/19 07:30 07/30/19 07:30 Abnormal lab results 07/29/19 07/29/19 07/29/19 Range/Units 18:00 18:00 19:01 WBC (4.5-11.0) K/mm3 RDW 13.0 L (13.2-15.2) % Lymph % (Auto) 12.5 L (13.4-35.0) % [place] % (Auto) 7.8 H (0.0-7.3) % Eos % (Auto) 4.6 H (0.0-4.3) % Lymph # 0.9 L (1.2-5.4) K/mm3 Seg Neutrophils % 74.7 H (40.0-70.0) % Seg Neuts % (Manual) (40.0-70.0) % Lymphocytes % (Manual) (13.4-35.0) % Seg Neutrophils # Man (1.8-7.7) K/mm3 Lymphocytes # (Manual) (1.2-5.4) K/mm3 Sodium (137-145) mmol/L Carbon Dioxide 21 L (22-30) mmol/L BUN (7-17) mg/dL Creatinine 0.6 L (0.7-1.2) mg/dL Glucose 118 H (65-100) mg/dL Alkaline Phosphatase 172 H (35-129) units/L Urine WBC (Auto) 14.0 H (0.0-6.0) /HPF 07/30/19 07/30/19 Range/Units 07:30 07:30 WBC 11.8 H (4.5-11.0) K/mm3 RDW (13.2-15.2) % Lymph % (Auto) (13.4-35.0) % [place] % (Auto) (0.0-7.3) % Eos % (Auto) (0.0-4.3) % Lymph # (1.2-5.4) K/mm3 Seg Neutrophils % (40.0-70.0) % Seg Neuts % (Manual) 96.0 H (40.0-70.0) % Lymphocytes % (Manual) 2.0 L (13.4-35.0) % Seg Neutrophils # Man 11.3 H (1.8-7.7) K/mm3 Lymphocytes # (Manual) 0.2 L (1.2-5.4) K/mm3 Sodium 135 L (137-145) mmol/L Carbon Dioxide 20 L (22-30) mmol/L BUN 5 L (7-17) mg/dL Creatinine 0.3 L (0.7-1.2) mg/dL Glucose 136 H (65-100) mg/dL Alkaline Phosphatase (35-129) units/L Urine WBC (Auto) (0.0-6.0) /HPF Diabetes panel 07/29/19 07/30/19 Range/Units 18:00 07:30 Sodium 139 135 L (137-145) mmol/L Potassium 3.9 3.6 (3.6-5.0) mmol/L Chloride 102.0 98.6 (98-107) mmol/L Carbon Dioxide 21 L 20 L (22-30) mmol/L BUN 12 5 L (7-17) mg/dL Creatinine 0.6 L 0.3 L (0.7-1.2) mg/dL Glucose 118 H 136 H (65-100) mg/dL Calcium 9.0 9.1 (8.4-10.2) mg/dL AST 24 (5-40) units/L ALT 29 (7-56) units/L Alkaline Phosphatase 172 H (35-129) units/L Total Protein 7.5 (6.3-8.2) g/dL Albumin 4.0 (3.9-5) g/dL Calcium panel 07/29/19 07/30/19 Range/Units 18:00 07:30 Calcium 9.0 9.1 (8.4-10.2) mg/dL Albumin 4.0 (3.9-5) g/dL Pituitary panel 07/29/19 07/30/19 Range/Units 18:00 07:30 Sodium 139 135 L (137-145) mmol/L Potassium 3.9 3.6 (3.6-5.0) mmol/L Chloride 102.0 98.6 (98-107) mmol/L Carbon Dioxide 21 L 20 L (22-30) mmol/L BUN 12 5 L (7-17) mg/dL Creatinine 0.6 L 0.3 L (0.7-1.2) mg/dL Glucose 118 H 136 H (65-100) mg/dL Calcium 9.0 9.1 (8.4-10.2) mg/dL Adrenal panel 07/29/19 07/30/19 Range/Units 18:00 07:30 Sodium 139 135 L (137-145) mmol/L Potassium 3.9 3.6 (3.6-5.0) mmol/L Chloride 102.0 98.6 (98-107) mmol/L Carbon Dioxide 21 L 20 L (22-30) mmol/L BUN 12 5 L (7-17) mg/dL Creatinine 0.6 L 0.3 L (0.7-1.2) mg/dL Glucose 118 H 136 H (65-100) mg/dL Calcium 9.0 9.1 (8.4-10.2) mg/dL Total Bilirubin 0.60 (0.1-1.2) mg/dL AST 24 (5-40) units/L ALT 29 (7-56) units/L Alkaline Phosphatase 172 H (35-129) units/L Total Protein 7.5 (6.3-8.2) g/dL Albumin 4.0 (3.9-5) g/dL - Imaging CT scan - abdomen: report reviewed, image reviewed CT scan - pelvis: report reviewed, image reviewed US - abdomen: report reviewed, image reviewed Assessment and Plan 34 yo F with acute cholecystitis Plan: 1. NPO 2. IVF 3. IV abx 4. prn pain and nausea control 5. DVT ppx 6. Recommend cholecystectomy. All risks, benefits, alternatives to surgery discussed with patient and spouse at bedside. Questions answered and consent obtained. All communication with the patient was performed using [employer] spanish professor line Thank you, please call with questions.
--- NOTE | 2019-07-30 15:18 | Anesthesia Consultation ---
<SRINIVAS ROONEY - Last Filed: 07/30/19 15:14> Anesthesia Consult and Med Hx Date of service: 07/30/19 - Airway Anesthetic Teeth Evaluation: Good ROM Head & Neck: Adequate Mental/Hyoid Distance: Adequate Mallampati Class: Class II Intubation Access Assessment: Probably Good - Pre-Operative Health Status ASA Pre-Surgery Classification: ASA1 Proposed Anesthetic Plan: General - Pulmonary Hx Smoking: No Hx Asthma: No Hx Respiratory Symptoms: No SOB: No COPD: No Home Oxygen Therapy: No Hx Pneumonia: No Hx Sleep Apnea: No - Cardiovascular System Hx Hypertension: No Hx Coronary Artery Disease: No Hx Heart Attack/AMI: No Hx Angina: No Hx Percutaneous Transluminal Coronary Angioplasty (PTCA): No Hx Cardia Arrhythmia: No Hx Pacemaker: No Hx Internal Defibrillator: No Hx Valvular Heart Disease: No Hx Heart Murmur: No Hx Peripheral Vascular Disease: No - Central Nervous System Hx Neuromuscular Disorder: No Hx Seizures: No CVA: No Hx Back Pain: No Hx Psychiatric Problems: No - Gastrointestinal Hx Ulcer: No Hx Gastroesophageal Reflux Disease: No - Endocrine Hx Renal Disease: No Hx End Stage Renal Disease: No Hx Cirrhosis: No Hx Liver Disease: No Hx Insulin Dependent Diabetes: No Hx Non-Insulin Dependent Diabetes: No Hx Thyroid Disease: No Hx Hypothyroidism: No Hx Hyperthyroidism: No - Hematic Hx Anemia: No Hx Sickle Cell Disease: No - Other Systems Hx Alcohol Use: No Hx Substance Use: No Hx Cancer: No Hx Obesity: No <GALINA UGARTE - Last Filed: 07/30/19 20:32> Anesthesia Consult and Med Hx - Additional Comments Anesthesia Medical History Comments: No significant PMH presenting with cholecystitis scheduled for lap fel[place]a. + N/V. Plan GETA/RSI.
--- NOTE | 2019-07-30 15:19 | Anesthesia Day of Surgery ---
Anesthesia Day of Surgery - Day of Surgery Patient Examined: Yes Patient H&P Reviewed: Yes Patient is NPO: Yes
--- NOTE | 2019-07-30 15:24 | Progress Note ---
Assessment and Plan Assessment and plan: 34-year-old With no medical problem causing emergency room with complaints of abdominal pain. Patient stated that she started area right upper quadrant pain one week ago however her symptoms subsided, yesterday the pain returned which she described as a pressure-like sensation, constant, intensity 6/10, radiating to the back, better with pain medication given in the emergency room and associated with nausea vomiting. Also complaining of dysuria . Patient is being admitted for acute cholecystitis Acute cholecystitis Urinary tract infection Post PLAN Placed on bowel rest, IV fluids, IV morphine, surgery was consulted to see the patient Continue IV Rocephin, follow cultures , DVT prophylaxis Anticipate discharge in am, SURGERY IS PLANNED FOR LATER TODAY Nurse and family advised. History Interval history: Patient seen and examined this morning spouse still at bedside. The patient remains in pain 4/10 in intensity. No associated nausea or vomiting noted. Hospitalist Physical - Physical exam Narrative exam: VITAL SIGNS: Reviewed. GENERAL: The patient appears normally developed, Vital signs as documented. HEAD: No signs of head trauma. EYES: Pupils are equal. Extraocular motions intact. EARS: Hearing grossly intact. MOUTH: Oropharynx is normal. NECK: No adenopathy, no JVD. CHEST: Chest with clear breath sounds bilaterally. No wheezes, rales, or r honchi. CARDIAC: Regular rate and rhythm. S1 and S2, without murmurs, gallops, or rubs. VASCULAR: No Edema. Peripheral pulses normal and equal in all extremities. ABDOMEN: Soft, tender right upper quadrant and non distended. No rebound or guarding, and no masses palpated. Bowel Sounds normal. MUSCULOSKELETAL: Good range of motion of all major joints. Extremities without clubbing, cyanosis or edema. NEUROLOGIC EXAM: Alert and oriented x 3 No focal sensory or strength deficits. Speech normal. Follows commands. PSYCHIATRIC: Mood normal. SKIN: detial exam as documented in skin assessment - Constitutional Vitals: Temp Pulse Resp BP Pulse Ox 99.7 F H 60 20 133/69 96 07/30/19 11:41 07/30/19 11:41 07/30/19 13:08 07/30/19 11:41 07/30/19 11:41 Results - Labs CBC & Chem 7: 07/30/19 07:30 07/30/19 07:30 Labs: Laboratory Last Values WBC 11.8 K/mm3 (4.5-11.0) H 07/30/19 07:30 RBC 4.10 M/mm3 (3.65-5.03) 07/30/19 07:30 Hgb 12.9 gm/dl (10.1-14.3) 07/30/19 07:30 Hct 37.5 % (30.3-42.9) 07/30/19 07:30 MCV 92 fl (79-97) 07/30/19 07:30 MCH 32 pg (28-32) 07/30/19 07:30 MCHC 34 % (30-34) 07/30/19 07:30 RDW 13.3 % (13.2-15.2) 07/30/19 07:30 Plt Count 237 K/mm3 (140-440) 07/30/19 07:30 Lymph % (Auto) 12.5 % (13.4-35.0) L 07/29/19 18:00 [place] % (Auto) 7.8 % (0.0-7.3) H 07/29/19 18:00 Eos % (Auto) 4.6 % (0.0-4.3) H 07/29/19 18:00 Baso % (Auto) 0.4 % (0.0-1.8) 07/29/19 18:00 Lymph # 0.9 K/mm3 (1.2-5.4) L 07/29/19 18:00 [place] # 0.6 K/mm3 (0.0-0.8) 07/29/19 18:00 Eos # 0.3 K/mm3 (0.0-0.4) 07/29/19 18:00 Baso # 0.0 K/mm3 (0.0-0.1) 07/29/19 18:00 Add Manual Diff Complete 07/30/19 07:30 Total Counted 100 07/30/19 07:30 Seg Neutrophils % Helicopter Technician 07/30/19 07:30 Seg Neuts % (Manual) 96.0 % (40.0-70.0) H 07/30/19 07:30 Band Neutrophils % 2.0 % 07/30/19 07:30 Lymphocytes % (Manual) 2.0 % (13.4-35.0) L 07/30/19 07:30 Reactive Lymphs % (Man) 0 % 07/30/19 07:30 Monocytes % (Manual) 0 % (0.0-7.3) 07/30/19 07:30 Eosinophils % (Manual) 0 % (0.0-4.3) 07/30/19 07:30 Basophils % (Manual) 0 % (0.0-1.8) 07/30/19 07:30 Metamyelocytes % 0 % 07/30/19 07:30 Myelocytes % 0 % 07/30/19 07:30 Promyelocytes % 0 % 07/30/19 07:30 Blast Cells % 0 % 07/30/19 07:30 Nucleated RBC % Not Reportable 07/30/19 07:30 Seg Neutrophils # 5.3 K/mm3 (1.8-7.7) 07/29/19 18:00 Seg Neutrophils # Man 11.3 K/mm3 (1.8-7.7) H 07/30/19 07:30 Band Neutrophils # 0.2 K/mm3 07/30/19 07:30 Lymphocytes # (Manual) 0.2 K/mm3 (1.2-5.4) L 07/30/19 07:30 Abs React Lymphs (Man) 0.0 K/mm3 07/30/19 07:30 Monocytes # (Manual) 0.0 K/mm3 (0.0-0.8) 07/30/19 07:30 Eosinophils # (Manual) 0.0 K/mm3 (0.0-0.4) 07/30/19 07:30 Basophils # (Manual) 0.0 K/mm3 (0.0-0.1) 07/30/19 07:30 Metamyelocytes # 0.0 K/mm3 07/30/19 07:30 Myelocytes # 0.0 K/mm3 07/30/19 07:30 Promyelocytes # 0.0 K/mm3 07/30/19 07:30 Blast Cells # 0.0 K/mm3 07/30/19 07:30 WBC Morphology Not Reportable 07/30/19 07:30 Hypersegmented Neuts Not Reportable 07/30/19 07:30 Hyposegmented Neuts Not Reportable 07/30/19 07:30 Hypogranular Neuts Not Reportable 07/30/19 07:30 Smudge Cells Not Reportable 07/30/19 07:30 Toxic Granulation Not Reportable 07/30/19 07:30 Toxic Vacuolation Not Reportable 07/30/19 07:30 Dohle Bodies Not Reportable 07/30/19 07:30 Pelger-Huet Anomaly Not Reportable 07/30/19 07:30 Remington Rods Not Reportable 07/30/19 07:30 Platelet Estimate Consistent w auto 07/30/19 07:30 Clumped Platelets Not Reportable 07/30/19 07:30 Plt Clumps, EDTA Not Reportable 07/30/19 07:30 Large Platelets Not Reportable 07/30/19 07:30 Giant Platelets Not Reportable 07/30/19 07:30 Platelet Satelliting Not Reportable 07/30/19 07:30 Plt Morphology Comment Not Reportable 07/30/19 07:30 RBC Morphology Normal 07/30/19 07:30 Dimorphic RBCs Not Reportable 07/30/19 07:30 Polychromasia Not Reportable 07/30/19 07:30 Hypochromasia Not Reportable 07/30/19 07:30 Poikilocytosis Not Reportable 07/30/19 07:30 Anisocytosis Not Reportable 07/30/19 07:30 Microcytosis Not Reportable 07/30/19 07:30 Macrocytosis Not Reportable 07/30/19 07:30 Spherocytes Not Reportable 07/30/19 07:30 Pappenheimer Bodies Not Reportable 07/30/19 07:30 Sickle Cells Not Reportable 07/30/19 07:30 Target Cells Not Reportable 07/30/19 07:30 Tear Drop Cells Not Reportable 07/30/19 07:30 Ovalocytes Not Reportable 07/30/19 07:30 Helmet Cells Not Reportable 07/30/19 07:30 Rodriguez-Roseau Bodies Not Reportable 07/30/19 07:30 Valmy Rings Not Reportable 07/30/19 07:30 [place] Cells Not Reportable 07/30/19 07:30 Bite Cells Not Reportable 07/30/19 07:30 Crenated Cell Not Reportable 07/30/19 07:30 Elliptocytes Not Reportable 07/30/19 07:30 Acanthocytes (Spur) Not Reportable 07/30/19 07:30 Rouleaux Not Reportable 07/30/19 07:30 Hemoglobin C Crystals Not Reportable 07/30/19 07:30 Schistocytes Not Reportable 07/30/19 07:30 Malaria parasites Not Reportable 07/30/19 07:30 Primitivo Bodies Not Reportable 07/30/19 07:30 Hem Pathologist Commnt No 07/30/19 07:30 Sodium 135 mmol/L (137-145) L 07/30/19 07:30 Potassium 3.6 mmol/L (3.6-5.0) 07/30/19 07:30 Chloride 98.6 mmol/L (98-107) 07/30/19 07:30 Carbon Dioxide 20 mmol/L (22-30) L 07/30/19 07:30 Anion Gap 20 mmol/L 07/30/19 07:30 BUN 5 mg/dL (7-17) L 07/30/19 07:30 Creatinine 0.3 mg/dL (0.7-1.2) L 07/30/19 07:30 Estimated GFR > 60 ml/min 07/30/19 07:30 BUN/Creatinine Ratio 17 % 07/30/19 07:30 Glucose 136 mg/dL (65-100) H 07/30/19 07:30 Calcium 9.1 mg/dL (8.4-10.2) 07/30/19 07:30 Total Bilirubin 0.60 mg/dL (0.1-1.2) 07/29/19 18:00 AST 24 units/L (5-40) 07/29/19 18:00 ALT 29 units/L (7-56) 07/29/19 18:00 Alkaline Phosphatase 172 units/L (35-129) H 07/29/19 18:00 Total Protein 7.5 g/dL (6.3-8.2) 07/29/19 18:00 Albumin 4.0 g/dL (3.9-5) 07/29/19 18:00 Albumin/Globulin Ratio 1.1 % 07/29/19 18:00 Lipase 27 units/L (13-60) 07/29/19 18:00 HCG, Qual Negative (Negative) 07/29/19 18:00 Urine Color Yellow (Yellow) 07/29/19 19:01 Urine Turbidity Clear (Clear) 07/29/19 19:01 Urine pH 7.0 (5.0-7.0) 07/29/19 19: Ur Specific [place] 1.023 (1.003-1.030) 07/29/19 19: Urine Protein <15 mg/dl mg/dL (Negative) 07/29/19 19: Urine Glucose (UA) Neg mg/dL (Negative) 07/29/19 19:01 Urine Ketones Neg mg/dL (Negative) 07/29/19 19: Urine Blood Neg (Negative) 07/29/19 19: Urine Nitrite Neg (Negative) 07/29/19 19: Urine Bilirubin Neg (Negative) 07/29/19 19: Urine Urobilinogen 4.0 mg/dL (<2.0) 07/29/19 19: Ur Leukocyte Esterase Mod (Negative) 07/29/19 19: Urine WBC (Auto) 14.0 /HPF (0.0-6.0) H 07/29/19 19: Urine RBC (Auto) 2.0 /HPF (0.0-6.0) 07/29/19 19: U Epithel Cells (Auto) < 1.0 /HPF (0-13.0) 07/29/19 19: Urine Mucus Few /HPF 07/29/19 19: Active Medications - Current Medications Current Medications: Generic Name Dose Route Start Last Admin Trade Name Freq PRN Reason Stop Dose Admin Acetaminophen 650 mg 07/29/19 23:35 Tylenol PO Q4H PRN Pain MILD(1-3)/Fever >100.5/MEAD Enoxaparin Sodium 40 mg 07/30/19 10:00 07/30/19 10:11 Enoxaparin SUB-Q 40 mg QDAY@1000 DELIA Administration Sodium Chloride 1,000 mls @ 100 mls/hr 07/29/19 23:45 07/30/19 10:11 Nacl 0.9% 1000 Ml IV 100 mls/hr DIRECT DELIA Administration Ceftriaxone Sodium 1 gm in 50 mls @ 100 mls/hr 07/30/19 10:00 07/30/19 10:12 Rocephin/Ns 1 Gm/50 Ml IV 100 mls/hr Q24HR DELIA Administration Protocol Morphine Sulfate 2 mg 07/29/19 23:35 07/30/19 13:08 Morphine IV 2 mg Q4H PRN Administration Pain, Moderate (4-6) Ondansetron HCl 4 mg 07/29/19 23:35 07/30/19 10:11 Zofran IV 4 mg Q8H PRN Administration Nausea And Vomiting Sodium Chloride 10 ml 07/30/19 10:00 07/30/19 10:12 Sodium Chloride Flush Syringe 10 Ml IV 10 ml BID DELIA Administration Sodium Chloride 10 ml 07/29/19 23:35 Sodium Chloride Flush Syringe 10 Ml IV PRN PRN LINE FLUSH
[2019-07-30] MEDS ORDERED: HYDROmorphone 1 MG/1 ML INJ IV ONE (16:33)
[2019-07-30] MEDS ORDERED: PHENYLEPHRINE/NS 1,000 MCG/10 ML SYRINGE (OR USE) IV ONE (18:28)
[2019-07-30] MEDS ORDERED: dexAMETHasone 20 MG/5 ML VIAL ONE (18:28)
[2019-07-30] MEDS ORDERED: ROCURONIUM 50 MG/5 ML INJ IV ONE (18:28)
[2019-07-30] MEDS ORDERED: GLYCOPYRROLATE 0.4 MG/2 ML INJ ONE (18:28)
[2019-07-30] MEDS ORDERED: LIDOCAINE MPF (2%) 20 MG/1 ML VIAL 5 ML ONE (18:28)
[2019-07-30] MEDS ORDERED: ONDANSETRON 4 MG/2 ML INJ ONE (18:28)
[2019-07-30] MEDS ORDERED: NEOSTIGMINE 10MG/10 ML INJ MDV ONE (18:28)
[2019-07-30] MEDS ORDERED: PROPOFOL 200 MG/20 ML VIAL IV ONE (18:29)
[2019-07-30] MEDS ORDERED: fentaNYL 250 MCG/5 ML INJ ONE (18:29)
[2019-07-30] MEDS ORDERED: LIDOCAINE (1%) 10 MG/1 ML VIAL 20 ML MDV ONE (18:44)
[2019-07-30] MEDS ORDERED: BUPIVACAINE-EPINEPHRINE/PF 0.5%-1:200,000 (30 ML) VIAL INFILTRATI ONE (18:44)
[2019-07-30] MEDS ORDERED: SODIUM CHLORIDE 0.9% IRRIG SOLN 2000 ML IR ONE (19:10)
[2019-07-30] MEDS ORDERED: BUPIVACAINE/PF (0.5%) 5 MG/1 ML 30 ML VIAL INFILTRATI ONE (19:10)
[2019-07-30] MEDS ORDERED: LIDOCAINE (1%) 10 MG/1 ML VIAL 20 ML MDV INFILTRATI ONE (19:10)
[2019-07-30] MEDS ORDERED: LACTATED RINGERS 2,000 ML ONE (19:25)
--- NOTE | 2019-07-30 20:20 | Post Operative Note ---
Date of procedure: 07/30/19 Pre-op diagnosis: acute cholecystitis Post-op diagnosis: same Findings: 1. thickened gallbladder wall, extremely inflamed and friable. 2. omental adhesions to gallbladder 3. severely distended gallbladder filled with green bile Procedure: laparoscopic cholecystectomy Anesthesia: GETA, local Surgeon: TORIE COLLINS Maintenance Inspector: LE ESTRADA Estimated blood loss: 50-100ml Pathology: list (gallbladder) Specimen disposition: to lab Condition: stable Disposition: PACU
[2019-07-30] MEDS ORDERED: HYDROmorphone 1 MG/1 ML INJ IV PRN (20:30)
--- NOTE | 2019-07-30 23:34 | Post Anesthesia Evaluation ---
- Post Anesthesia Evaluation Patient Participated: Yes Airway Patent: Yes Stable Respiratory Function: Yes Nausea/Vomiting: No Temp > 96.8F: Yes Pain Manageable: Yes Adequeate Hydration: Yes Anesthesia Complications: No
[2019-07-31] MEDS: oxyCODONE /ACETAMINOPHEN 5-325MG TAB PO PRN ×2 (05:00→13:18)
[2019-07-31] MEDS: SODIUM CHLORIDE 0.9% 1000 ML 1,000 ML IV SCH ×2 (05:10→07:35)
[2019-07-31 05:57] LABS: Hematocrit 35.6 % (30.3-42.9); Hemoglobin 11.9 gm/dl (10.1-14.3); Mean Corpuscular HGB Conc 34 % (30-34); Mean Corpuscular Volume 91 fl (79-97); Platelet Count 223 K/mm3 (140-440); Red Cell Distribution Width 13.1 % (13.2-15.2)
[2019-07-31 06:46] LABS: Alanine Aminotransferase 37 units/L (7-56); BUN/Creatinine Ratio 27; Blood Urea Nitrogen 8 mg/dL (7-17); Calcium 8.7 mg/dL (8.4-10.2); Hemolysis Index 32
[2019-07-31] MEDS: cefTRIAXone/NS 1 GM/50 ML 1 GM/50 ML BAG IV SCH (11:20)
[2019-07-31] MEDS: ENOXAPARIN 40 MG/0.4 ML INJ SUB-Q SCH (11:20)
--- NOTE | 2019-07-31 12:14 | Progress Note ---
Assessment and Plan 34 yo F s/p laparoscopic cholecystectomy, POD 1 Plan: 1. Reg diet 2. dc IVF 3. prn PO pain control 4. OOB/ambulate 5. ok to dc home today with RX for percocet and augmentin. Instructed patient to avoid heavy lifting and may start breast feeding 24 hours after she stops taking prescription pain medications. Pt instructed to follow up in surgery clinic in 2 weeks. Thank you, please call with questions. Subjective Date of service: 07/31/19 Narrative: Pt seen and examined. c/o mild incisional pain. No f/c. Feels much better. No n/v. Tolerating regular diet. Ambulating Objective Vital Signs - 12hr 07/31/19 07/31/19 07/31/19 04:40 07:56 08:00 Temperature 97.9 F 98 F Pulse Rate 64 65 Respiratory 16 16 Rate Blood Pressure 93/38 135/78 [Left] O2 Sat by Pulse 96 97 100 Oximetry - General physical appearance Narrative Exam: Gen: AAOx3. NAD CV: s1, S2+ Resp: even and unlabored Abd: soft, ND, mild periincisional TTP. No r/r/g. Incisions c/d/i Ext: no c/c/e - Labs 07/31/19 05:41 07/31/19 05:41 Diabetes panel 07/31/19 Range/Units 05:41 Sodium 141 (137-145) mmol/L Potassium 3.9 (3.6-5.0) mmol/L Chloride 106.8 (98-107) mmol/L Carbon Dioxide 22 (22-30) mmol/L BUN 8 (7-17) mg/dL Creatinine 0.3 L (0.7-1.2) mg/dL Glucose 121 H (65-100) mg/dL Calcium 8.7 (8.4-10.2) mg/dL AST 49 H (5-40) units/L ALT 37 (7-56) units/L Alkaline Phosphatase 132 H (35-129) units/L Total Protein 5.9 L D (6.3-8.2) g/dL Albumin 3.0 L (3.9-5) g/dL Calcium panel 07/31/19 Range/Units 05:41 Calcium 8.7 (8.4-10.2) mg/dL Albumin 3.0 L (3.9-5) g/dL Pituitary panel 07/31/19 Range/Units 05:41 Sodium 141 (137-145) mmol/L Potassium 3.9 (3.6-5.0) mmol/L Chloride 106.8 (98-107) mmol/L Carbon Dioxide 22 (22-30) mmol/L BUN 8 (7-17) mg/dL Creatinine 0.3 L (0.7-1.2) mg/dL Glucose 121 H (65-100) mg/dL Calcium 8.7 (8.4-10.2) mg/dL Adrenal panel 07/31/19 Range/Units 05:41 Sodium 141 (137-145) mmol/L Potassium 3.9 (3.6-5.0) mmol/L Chloride 106.8 (98-107) mmol/L Carbon Dioxide 22 (22-30) mmol/L BUN 8 (7-17) mg/dL Creatinine 0.3 L (0.7-1.2) mg/dL Glucose 121 H (65-100) mg/dL Calcium 8.7 (8.4-10.2) mg/dL Total Bilirubin 0.50 (0.1-1.2) mg/dL AST 49 H (5-40) units/L ALT 37 (7-56) units/L Alkaline Phosphatase 132 H (35-129) units/L Total Protein 5.9 L D (6.3-8.2) g/dL Albumin 3.0 L (3.9-5) g/dL
[2019-07-31 13:21] VITALS: BP 93/38
--- NOTE | 2019-07-31 13:45 | Discharge Summary ---
Providers - Providers Date of Admission: 07/29/19 22:11 Date of discharge: 07/31/19 Attending physician: CASS ALVAREZ 07/29/19 21:49 Consult to Physician [CONS] Stat Comment: Consulting Provider: TORIE COLLINS Physician Instructions: Reason For Exam: acute cholecystitis Primary care physician: PRODUCTION SKI REPAIRER Hospitalization Reason for admission: acute cholecystitis, UTI, Condition: Fair Pertinent studies: CT abdomen and pelvis Procedures: laparoscopic cholecystectomy Hospital course: 34-year-old With no medical problem causing emergency room with complaints of abdominal pain. Patient stated that she started area right upper quadrant pain one week ago however her symptoms subsided, yesterday the pain returned which she described as a pressure-like sensation, constant, intensity 6/10, radiating to the back, better with pain medication given in the emergency room and associated with nausea vomiting. Also complaining of dysuria . Patient is being admitted for acute cholecystitis per CTabdoman and pelvis. Lap cholecystectomy was done and pt had uneventful recovery. she is therefore being dischargd today to f/u with PCP in 3-5day her OBGYN in 1 week being post Disposition: DC-01 TO HOME OR SELFCARE Time spent for discharge: 35 min - Discharge Diagnoses (1) Acute cholecystitis Status: Acute (2) UTI (urinary tract infection) Status: Acute Qualifiers: Urinary tract infection type: acute cystitis Hematuria presence: without he maturia Qualified Code(s): N30.00 - Acute cystitis without hematuria (3) Active labor at term Status: Acute (4) with 39 completed weeks gestation Status: Acute Core Measure Documentation - Palliative Care Palliative Care/ Comfort Measures: Not Applicable - Core Measures Any of the following diagnoses?: none Exam - Constitutional Vitals: Temp Pulse Resp BP Pulse Ox 98 F 65 16 135/78 100 07/31/19 08:00 07/31/19 08:00 07/31/19 08:00 07/31/19 08:00 07/31/19 08:00 General appearance: Present: no acute distress, well-nourished - EENT Eyes: Present: PERRL ENT: hearing intact, clear oral mucosa - Neck Neck: Present: supple, normal ROM - Respiratory Respiratory effort: normal Respiratory: bilateral: CTA - Cardiovascular Heart Sounds: Present: S1 & S2. Absent: rub, click - Extremities Extremities: pulses symmetrical, No edema Peripheral Pulses: within normal limits - Abdominal General gastrointestinal: Present: soft, non-tender, non-distended, normal bowel sounds - Integumentary Integumentary: Present: clear, warm, dry - Musculoskeletal Musculoskeletal: gait normal, strength equal bilaterally - Psychiatric Psychiatric: appropriate mood/affect, intact judgment & insight - Neurologic Neurologic: CNII-XII intact, moves all extremities Plan Activity: advance as tolerated Weight Bearing Status: Weight Bear as Tolerated Diet: regular Follow up with: TORIE COLLINS DO [Staff Physician] - 14 Days PRIMARY CARE, [Primary Care Provider] - 3-5 Days Prescriptions: Amoxicillin/Potassium Clav [Augmentin 875-125 Tablet] 1 each PO BID #14 tablet oxyCODONE /ACETAMINOPHEN [Percocet 5/325 mg] 1 tab PO Q6H PRN #15 tablet PRN Reason: Pain, Moderate (4-6)
--- NOTE | 2019-08-02 09:39 | Operative Report ---
PREOPERATIVE DIAGNOSIS: Acute cholecystitis. POSTOPERATIVE DIAGNOSIS: Acute cholecystitis. FINDINGS: 1. Thickened gallbladder wall, extremely inflamed and friable. 2. Omental adhesions to the gallbladder. 3. Severely distended gallbladder filled with green bile. PROCEDURE: Laparoscopic cholecystectomy. ANESTHESIA: General endotracheal anesthesia, local. SURGEON: Josephine Jimenez DO. E LEARNING MANAGER: Dread Kilgore MD ESTIMATED BLOOD LOSS: 50 mL. PATHOLOGY: Gallbladder. SPECIMEN DISPOSITION: To lab. CONDITION ON DISCHARGE: The patient is stable to PACU. HISTORY OF PRESENT ILLNESS AND INDICATIONS: The patient is a 34-year-old female who presented to the hospital with complaints of severe epigastric and right upper quadrant abdominal pain associated with nausea and vomiting. She was found to have acute cholecystitis on imaging and elevated white blood cell count. On physical exam, the gallbladder was palpable and very tender. Recommendation was to proceed with cholecystectomy. All risks, benefits and alternatives to surgery were discussed with the patient. Questions answered. Consent was obtained. PROCEDURE IN DETAIL: The patient was identified in the preoperative area and taken back to the operating room and placed on the operating table in supine position. After anesthesia was induced, the abdomen was prepped and draped in the usual sterile fashion. A timeout performed. A supraumbilical incision was made through which a Veress needle was inserted. The Veress needle position was confirmed using saline drop test and the abdomen insufflated to 15 mmHg. Veress needle was then removed and a 5 mm Optiview trocar placed through this incision. The abdomen was inspected. There was no underlying injury to any of the abdominal structures. The patient was placed in reverse Trendelenburg and tilted to the left. The gallbladder was seen in the right upper quadrant, but was obscured by omentum. An additional 12 mm subxiphoid and two right upper quadrant 5 mm trocars were placed under direct visualization. Please note local anesthetic was infiltrated into the skin prior to any incision. The omentum was grasped and bluntly dissected off the gallbladder. The gallbladder was hard and could not be grasped due to severe distention. Therefore, it was decided to aspirate the gallbladder to decompress it. A 30 mL of green bile was aspirated from the gallbladder and it was then able to be grasped by the clothing sales assistant surgeon. Gallbladder wall was very thickened and inflamed. Gallbladder fundus was grasped and retracted cephalad and above the liver. The remainder of the omental adhesions very carefully dissected off the gallbladder using a combination of blunt dissection and Harmonic scalpel. Once the neck of the gallbladder was identified, the cystic duct and artery were carefully dissected. Once the cystic duct and artery were skeletonized, the medial and lateral peritoneal reflection of the gallbladder was dissected. Critical view was obtained. The cystic duct and artery were seen as only two structures entering the gallbladder. Two clips were placed on the proximal aspect of the cystic artery and one distally and this was transected using the Harmonic scalpel. Three clips were placed on the proximal aspect of the cystic duct and one distally and this was transected using EndoShears. Gallbladder was then dissected off the liver bed using combination of Harmonic scalpel and hook electrocautery. Once the gallbladder was completely dissected off the liver bed, it was placed in the right upper quadrant. Gallbladder fossa and liver bed were then examined and hemostasis achieved using a combination of electrocautery, Surgicel and Carissa powder. The clips were visualized and intact. There was no bleeding or bile leakage seen from the liver bed or the area of the clips at the end of the case. The abdomen was copiously irrigated until all clot was evacuated and the irrigant returned clear. The gallbladder was placed into EndoCatch bag and removed via the 12 mm port. This port did need to be extended in order to accommodate the very large inflamed gallbladder. The abdomen was once again inspected and there was no bleeding or bile leakage from the liver bed. The 12 mm port was removed along with the remainder of the ports under direct visualization. The abdomen was desufflated. This fascia of the 12 mm port was closed with a running 0 Vicryl suture. The subcutaneous tissue was irrigated copiously with saline. Skin of all incisions was once again infiltrated with local anesthetic and closed using 4-0 Monocryl subcuticular stitches and skin glue. At the end of the case, all sponge, instrument, sharp counts were correct x 2. The patient was awoken from anesthesia, extubated, and taken to PACU in stable condition. JOB# [id number]/BRYANT
== END 2019-07-31 15:15 | disposition home or self-care (01) | DRG 769 ==
LOC: ED 17:24 → 3B-SURG 22:11
PROVIDERS: ADMIT Internal Medicine; ATTEND Family Medicine
PROC: 0FT44ZZ Resection of Gallbladder, Percutaneous Endoscopic Approach (ICD-10-PCS; principal; 2019-07-30)
DX: O99.63 Diseases of the digestive system complicating the puerperium (principal); K81.0 Acute cholecystitis; O86.21 Infection of kidney following delivery; J45.909 Unspecified asthma, uncomplicated; Z3A.39 39 weeks gestation of pregnancy; Z98.51 Tubal ligation status; Z82.49 Family history of ischemic heart disease and other diseases of the circulatory system
CPT/HCPCS: 36415; 74177; 76705; 80048; 80053; 81001; 83690; 84703; 85007; 85025; 85027; 87086; 88304; 96361; 96365; 96366; 96375; 96376; G0378; A4217; J0696; J1100; J1170; J1650; J2270; J2370; J2405; J2543; J2704; J2710; J3010; J7030; J7120; Q9967